=== PATIENT | male | born 1960 | race Caucasian/White ===

== ENCOUNTER → 2019-04-15 | Outpatient (CLI) | payer OTHER ==
[~2019-04-15] MED LIST: ATOR20TA58 PO; ENAL10TA PO; NAPR220T70 PO
--- NOTE | 2019-04-15 23:47 | PAIN ---
DATE OF SERVICE: 04/15/2019 INITIAL CONSULTATION FOR PAIN CLINIC CHIEF COMPLAINT: Low back pain. HISTORY OF PRESENT ILLNESS: This is a 58-year-old male who presents today with history of pain for many years, worse over the past year or so, not a result of any specific injury or action he is aware of, but significant pain across the low back, right equal to left with walking, standing, changing positions, difficulty with standing upright. Reports he walks stooped forward. When he tries to stand up straight, his back pain increases significantly. The patient reports the pain is constant, shooting, radiating across the back, intermittent in intensity, better with sitting or lying down, generally does not awaken him from sleep at night, but can occasionally. The patient reports it does not affect his bowel or bladder control, but does affect his ability to walk significantly. He feels his legs are heavy as though he is walking and water. The patient reports he has had physical therapy as well as chiropractic treatment in the past without significant improvement. He is still doing stretching and strengthening exercises on his own without significant improvement as well. He has recently seen his neurosurgeon who is requesting nonsurgical alternatives at this time. The patient rates his disability from 0-10, 10 being the worst, is a 7 with family home responsibilities, recreation, social activity, and sexual behavior, 5 with occupation, 2 with self-care and 3 with life support activities. The patient did have MRI scan of the lumbar spine showing mild central canal stenosis at the L4-L5, L3-L4 and L5-S1, showing severe left and mild right foraminal stenosis with moderate bilateral facet arthropathy at L3-L4 and moderate to severe right and mild left lateral recess stenosis at L4-L5 with mild to moderate bilateral foraminal stenosis as well. L5-S1 showing diffuse disk bulge and moderate bilateral facet arthropathy as well with severe left and mild right foraminal stenosis. PAST MEDICAL HISTORY: Significant for hypertension, cigarette smoking, arthritis. PREVIOUS SURGERY: No previous surgeries. CURRENT MEDICATIONS: Include atorvastatin and an Alpro. ALLERGIES: The patient has no known drug allergies. FAMILY HISTORY: Significant for no major medical problems or conditions that he is aware of. SOCIAL HISTORY: The patient does not drink alcohol. Smokes less than a pack a day, but has for 30 years; not using any illegal, illicit or recreational drugs. He is , lives with his spouse. Lives in [place], [place]. REVIEW OF SYSTEMS: The patient's review of systems is positive for those items mentioned in history of present illness. All systems reviewed and otherwise negative. It is complete, full and well documented on the patient's chart. PHYSICAL EXAMINATION: VITAL SIGNS: The patient's blood pressure is 149/90, pulse is 81, respirations 18, temperature 98.3 degrees Fahrenheit, height is 6 feet, weight is 270 pounds. GENERAL: The patient is awake, alert, oriented, appropriate, very pleasant demeanor. HEENT: Head shows normocephalic, atraumatic. Extraocular movements are intact and symmetrical. Oral cavity: Mucous membranes moist and pink. Dentition is intact. NECK: Shows anterior throat supple without palpable lymphadenopathy noted. Swallow reflex symmetrical. CHEST: Shows normal on inspection. Breath sounds clear to auscultation bilaterally. HEART: Shows S1, S2 clear. No murmurs auscultated. ABDOMEN: Soft, nontender, nondistended. No palpable organomegaly is noted. No rebound or guarding demonstrated. BACK: Shows spine grossly in the midline. Normal appearing thoracic kyphosis. Some slight flattening of lumbar lordotic curvature. Lumbar paraspinous muscle shows symmetrical on inspection, on palpation shows some moderate tenderness diffusely bilaterally, but only diffusely without radiation. The patient's back shows good rotational motion with some moderate tenderness with right and left lateral rotation greater than 10 degrees, also with extension shows significant tenderness with axial loading of the lumbar spine and extension greater than 10 degrees, forward flexion 45 degrees decreases his pain significantly and is performed fully. EXTREMITIES: The patient's lower extremities show deep tendon reflexes at 2+ in the patellar, 1+ tendo-calcaneus tendons. Motor exam is strong with 5/5 dorsiflexion, extension, quadriceps and hamstring flexion and are symmetrical. Peripheral pulses are 1+ posterior tibia. No peripheral edema is noted. The patient is able to stand, stand on his toes without significant difficulty, walks with a slightly forward leaning gait, does not appear to favor the right or left lower extremity significantly. He is not using any assistive devices to ambulate. SKIN: Shows warm and dry, good turgor. No edema. No sores, rashes or bruising throughout. IMPRESSION: 1. This is a 58-year-old male with a long history of low back pain, worse over the past year with extension and axial loading of the lumbar spine consistent with facet arthropathy syndrome bilaterally. 2. Cigarette smoking. 3. Arthritis. 4. Hypertension. 5. Obesity. PLAN: Options were discussed with the patient and the patient's spouse who accompanied him to his visit today including conservative medical management, continued physical therapies, interventional techniques. He would like to pursue interventional techniques. We discussed lumbar facet joint injections at the L4-L5 and L5-S1 levels bilaterally using description as well as anatomical models to describe the procedure. The patient would like to proceed with this. We will wait for preauthorization with his insurance provider and plan on the patient returning for bilateral L4-L5 and L5-S1 facet joint injections at that time. In the meantime, the patient will continue with stretching and strengthening exercises, maintain activity as tolerated. MARY CARMEN PARKS MD DR: PILO/richard JOB#: [id number] / [id number]
== END | disposition home or self-care (01) ==
LOC: PNCL 10:46
PROVIDERS: ATTEND Anesthesiology
DX: M54.5 Low back pain (principal); G50.0 Trigeminal neuralgia; F17.210 Nicotine dependence, cigarettes, uncomplicated; I10 Essential (primary) hypertension; M13.88 Other specified arthritis, other site; M48.061 Spinal stenosis, lumbar region without neurogenic claudication; M12.88 Other specific arthropathies, not elsewhere classified, other specified site; E66.9 Obesity, unspecified; Z68.45 Body mass index [BMI] 70 or greater, adult
CPT/HCPCS: G0463

== ENCOUNTER → 2019-06-24 | Outpatient (CLI) | payer OTHER ==
[~2019-06-24] MED LIST changes: +BUPIVACAINE MPF 0.25% 10 ML VIAL. ONE; +IOHEXOL 180 MG/ML 10 ML VIAL. ONE; +methylPREDNISolone ACETATE 40 MG/ML VIAL. ONE; +methylPREDNISolone ACETATE 80 MG/ML VIAL. ONE
--- NOTE | 2019-06-24 10:15 | PAIN ---
DATE OF SERVICE: 06/24/2019 PROGRESS NOTE FOR PAIN CLINIC DIAGNOSES: Lumbar degenerative disk disease, lumbar spinal stenosis and lumbosacral spondylosis. HISTORY OF PRESENT ILLNESS: The patient is a 59-year-old male who returns for followup status post initial evaluation and preauthorization for bilateral facet joint injections. The patient has finally obtained that and would like to proceed today with pain in the low back bilaterally, worse with walking, standing, changing positions, better with sitting or lying down, but does not awaken him from sleep at night. The patient reports the pain is same is aching, sharp, shooting, burning, stabbing, constant in the low back itself, right slightly worse than the left, but present bilaterally. No significant radiation to the lower extremities. At this time, the patient reports it is 8 on a scale of 10 at its worst, 8 on average and 6 at its least over the past week and is an 8 today. The patient reports no new motor or sensory deficits, no new bowel or bladder incontinence. PHYSICAL EXAMINATION: VITAL SIGNS: The patient's blood pressure 137/80, pulse 78, respirations 18, temperature 97.7 degrees Fahrenheit, height 6 feet, weight is 274 pounds. GENERAL: The patient is awake, alert, oriented, appropriate, very pleasant demeanor. The patient is accompanied by his spouse. HEENT: Shows normocephalic, atraumatic. Extraocular movements are intact and symmetrical. Oral cavity shows mucous membranes moist and pink. Dentition is intact. NECK: Shows anterior throat supple without palpable lymphadenopathy noted. Swallow reflex symmetrical. CHEST: Shows normal on inspection. Breath sounds are clear to auscultation bilaterally. HEART: Shows S1, S2 clear. Abdomen: Obese, soft, nontender, nondistended. No palpable organomegaly is noted. No rebound or guarding demonstrated. BACK: Shows spine grossly in the midline. Normal appearing thoracic kyphosis, some minor flattening of lumbar lordotic curvature. Lumbar paraspinous muscle shows symmetrical on inspection, on palpation shows some moderate tenderness diffusely bilaterally going diffusely without radiation. The patient has good rotational motion with some moderate tenderness with right and left rotation greater than 10 degrees, right slightly more tender than the left, but with extension and axial loading significant tenderness at the extension at 10 degrees, better with forward flexion at 45 degrees, which is nontender. EXTREMITIES: The patient's lower extremities show deep tendon reflexes 2+ in the patellar, 1+ tendo-calcaneus tendons. Motor exam is strong with 5/5 dorsiflexion, extension, quadriceps and hamstring flexion and symmetrical. Peripheral pulses are 1+ posterior tibia. No peripheral edema is noted. Options were discussed with the patient. The patient's old chart was reviewed as his current medication regimen updated. Current review of systems updated today as well. We will proceed with bilateral L4-L5 and L5-S1 facet joint injections today with fluoroscopic guidance. Risks were again discussed including, but not limited to bleeding, infection, possibility of epidural hematoma, subsequent neurological compromise, dural punctures, headaches, spinal cord and/or nerve damage, side effects of steroid medication and poor results regarding pain control. The patient understands and wished to proceed. The patient will return to clinic in approximately 2 weeks for followup. She was counseled on return appointment, activity level and side effects to be aware of. DIAGNOSES: Lumbar and lumbosacral spondylosis. PROCEDURE: Lumbar L4-L5 and L5-S1 bilateral facet joint injections using C-arm fluoroscopic guidance under sterile prep and drape using local anesthetic. MEDICATION INJECTED: A total of 120 mg Depo-Medrol plus 4 mL of 0.25% bupivacaine and 2 mL total of contrast. CONDITION AT DISCHARGE: Stable. The patient tolerated the procedure well, had no complications. MARY CARMEN PARKS MD DR: PILO/richard JOB#: [id number] / [id number]
== END ==
LOC: PNCL 08:09
PROVIDERS: ATTEND Anesthesiology
DX: M47.816 Spondylosis without myelopathy or radiculopathy, lumbar region (principal); M48.061 Spinal stenosis, lumbar region without neurogenic claudication; M51.36 Other intervertebral disc degeneration, lumbar region
CPT/HCPCS: 64493; 64494; J1030; J1040; J3490; Q9965

== ENCOUNTER → 2019-08-27 | Outpatient (CLI) | payer OTHER ==
[~2019-08-27] MED LIST changes: -BUPIVACAINE MPF 0.25% 10 ML VIAL. ONE; -IOHEXOL 180 MG/ML 10 ML VIAL. ONE; -methylPREDNISolone ACETATE 40 MG/ML VIAL. ONE; -methylPREDNISolone ACETATE 80 MG/ML VIAL. ONE
--- NOTE | 2019-08-27 12:14 | PAIN ---
DATE OF SERVICE: 08/27/2019 PROGRESS NOTE FOR PAIN CLINIC DIAGNOSES: 1. Lumbar and lumbosacral spondylosis, lumbar spinal stenosis, and lumbar degenerative disk disease. 2. Bilateral hip joint pain. HISTORY OF PRESENT ILLNESS: The patient is a 59-year-old male who returns for followup status post bilateral L4-L5 and L5-S1 facet joint injections. The patient had this done on 06/24/2019, did very well with about 80% improvement initially with the decreasing pain lasting about 2-3 weeks following the injections. The pain is returning now to about 40% level. The patient reports it is still helping, but is about 40% improved overall at this time, about 80% in the first 3 weeks. The patient reports it is an 8 on a scale of 10 at its worst over the past week, 7 on average, 6 at its least and is a 6 today. The patient reports it is worse with walking, standing, changing positions, especially extension of the lumbar spine, right and left lateral rotation increases the pain. The patient reported aching and shooting across the back, burning, stabbing, no radiation of the lower extremities. The patient also reports some significant hip pain with walking, standing, changing position, especially radiating into the groin bilaterally with climbing stairs or steps, putting all his weight on one leg or the other and essentially equal right and left. The patient reports no new motor or sensory deficits, no new bowel or bladder incontinence or other complaints. PHYSICAL EXAMINATION: VITAL SIGNS: The patient's blood pressure 143/87, pulse 79, respirations 18, temperature 97.8 degrees Fahrenheit, height is 6 feet, weight is 276 pounds. GENERAL: The patient is awake, alert, oriented, appropriate, very pleasant demeanor. HEENT: Shows normocephalic, atraumatic. Extraocular movements are intact and symmetrical. Oral cavity: Mucous membranes moist and pink. Dentition is intact. NECK: Shows anterior throat supple without palpable lymphadenopathy noted. Swallow reflex symmetrical. CHEST: Shows normal on inspection. Breath sounds are clear to auscultation bilaterally. HEART: Shows S1, S2 clear. No murmurs auscultated. ABDOMEN: Soft, nontender, nondistended. No palpable organomegaly is noted. No rebound or guarding demonstrated. BACK: Shows spine grossly in the midline. Normal appearing thoracic kyphosis and minor flattening of lumbar lordotic curvature. Lumbar paraspinous muscle shows symmetrical on inspection, with palpation shows some moderate tenderness diffusely bilaterally in the middle and lower distribution of paraspinous muscles, but only with deeper palpation without radiation or asymmetry. No trigger points are noted with palpation. No tenderness over the spinous processes, sacrum or sacroiliac regions. The patient has good rotational motion, but moderate tenderness with right and left lateral rotation greater than 10 degrees and with extension and axial loading of the lumbar spine, significant pain and tenderness in the low back bilaterally, again slightly worse on the right than the left. EXTREMITIES: Lower extremities show deep tendon reflexes 2+ in the patellar and 1+ tendo calcaneus tendons. Motor exam is strong with 5/5 dorsiflexion, extension, quadriceps and hamstring flexion symmetrical. Peripheral pulses are 1+ posterior tibia. No peripheral edema is noted bilaterally. The patient's hip shows mildly positive Jesus's maneuver bilaterally, somewhat worse on the right than the left, but present bilaterally with external rotation and displacement of the hip with knee flexion. PLAN: Options were discussed with the patient. The patient's old chart was reviewed as his current medication regimen updated. Current review of systems updated today as well. We will preauthorize the patient for additional lumbar facet joint injections at L4-L5 and L5-S1 bilaterally as the patient did very well with these initially and potentially a radiofrequency ablation in the future if does well with a second diagnostic block. The patient is also having some difficulties with hips. He is going to see his primary care physician later this week and we will ask for evaluation of the hips and hip films as well. The patient will return to clinic for bilateral L4-L5 and L5-S1 facet joint injections after preapproval. The patient has significant lumbar spondylosis with significant increase in pain with axial loading bilaterally. MARY CARMEN PARKS MD DR: PILO/richard JOB#: [id number] / [id number]
== END | disposition home or self-care (01) ==
LOC: PNCL 10:21
PROVIDERS: ATTEND Anesthesiology
DX: M47.816 Spondylosis without myelopathy or radiculopathy, lumbar region (principal); M48.061 Spinal stenosis, lumbar region without neurogenic claudication; M51.36 Other intervertebral disc degeneration, lumbar region; M25.552 Pain in left hip; M25.551 Pain in right hip
CPT/HCPCS: G0463